=== PATIENT | female | born 2000 | race African-American/Black ===

== ENCOUNTER 2020-03-02 11:34 | Outpatient (CLI) | payer OTHER ==
[2020-03-02 12:47] LABS: Basophils % (A) 0 %; Eosinophils # (A) 0.3 k/uL (0-0.7); Eosinophils % (A) 3 %; HCT 33.9 % (34.0-46.0); HGB 11.6 gm/dL (11.4-16.0); Lymphocytes # (A) 2.2 k/uL (1.0-4.8); Lymphocytes % (A) 22 %; MCH 31.1 pg (25.0-35.0); MCHC 34.2 g/dL (31.0-37.0); MCV 90.9 fL (80.0-100.0); Mean Platelet Volume 7.9; Monocytes # (A) 0.5 k/uL (0-1.0); Monocytes % (A) 5 %; Neutrophils # (A) 6.8 k/uL (1.3-7.7); Neutrophils % (A) 69 %; Platelet Count 243 k/uL (150-450); RBC 3.73 m/uL (3.80-5.40); RDW 13.3 % (11.5-15.5); WBC 9.9 k/uL (3.8-10.6)
[2020-03-02 12:58] LABS: INR 0.9 (<1.2); Partial Thromboplastin Time 23.2 sec (22.0-30.0); Prothrombin Time 9.7 sec (9.0-12.0)
[2020-03-02 13:06] LABS: ALT 10 U/L (4-34); AST 22 U/L (14-36); African American GFR (CKD) >90 (>60 ml/min/1.73 sqM); Blood Urea Nitrogen 3 mg/dL (7-17); LDH 532 U/L (313-618); Non-African American GFR(CKD) >90 (>60 ml/min/1.73 sqM); Uric Acid 3.4 mg/dL (3.7-7.4)
[2020-03-02 13:12] LABS: Amorphous Sediment,Urine Rare /hpf; Appearance,Urine Turbid (Clear); Bacteria,Urine Occasional /hpf; Bilirubin,Urine Negative (Negative); Blood,Urine Negative (Negative); Color,Urine Yellow; Glucose,Urine (UA) Negative (Negative); Ketones,Urine Negative (Negative); Leukocyte Esterase,Urine Small (Negative); Mucus,Urine Occasional /hpf; Nitrite,Urine Negative (Negative); PH, Urine 7.5 (5.0-8.0); Protein,Urine Negative (Negative); RBC,Urine 1 /hpf (0-5); Specific Gravity,Urine 1.015 (1.001-1.035); Squamous Epithelial Cell,Urine 9 /hpf (0-4); Urobilinogen,Urine <2.0 mg/dL (<2.0); WBC,Urine 8 /hpf (0-5)
[2020-03-02 13:43] VITALS: BP 129/69; PULSE 93; RESP 16; TEMP 96.5
[2020-03-02 13:43] LABS: Creatinine,Urine Random 122.1 mg/dL; Protein/Creatinine Ratio,Urine 0.106
--- NOTE | 2020-03-14 20:25 | P.MSEPDOC ---
Presenting Problems - Arrival Data Date of Arrival on Unit: 03/02/20 Time of Arrival on Unit: 11:34 Mode of Transport: Ambulatory - Complaint OB-Reason for Admission/Chief Complaint: NST, PIH Medical History - Information : 1 Para: 0 Term: 0 : 0 Abortions: Spontaneous or Elective: 0 Number of Living Children: 0 - Gestational Age Gestational Age by TABITHA (wks/days): 35 Weeks and 2 Days Review of Systems - Review of Systems Constitutional: No problems Breast: No problems ENT: No problems Cardiovascular: No problems Respiratory: No problems Gastrointestinal: No problems Genitourinary: No problems Musculoskeletal: No problems Neurological: No problems Skin: No problems Vital Signs - Temperature Temperature: 96.5 F Temperature Source: Temporal Artery Scan - Pulse Right Pulse Rate: 93 Pulse Assessment Method: Automatic Cuff - Respirations Respiratory Rate: 16 Oxygen Delivery Method: Room Air O2 Sat by Pulse Oximetry: 99 - Blood Pressure Right Arm Blood Pressure: 129/69 Blood Pressure Mean: 89 Blood Pressure Source: Automatic Cuff Medical Screen Scoring (Pre) - Cervical Exam Dilation: Exam Deferred Effacement: Exam Deferred Membranes: Intact - Uterine Contractions Frequency: N/A Duration: N/A Intensity: N/A - Maternal Vital Signs Maternal Temperature: N/A Maternal Blood Pressure: N/A Signs of Preeclampsia: N/A Maternal Respirations: N/A - Maternal Trauma Maternal Trauma: N/A - Assessment - Baby A Baseline FHR: 130 Heart Rate - NICHD Category: Category I (Normal) = 0 NST: Reactive Position: N/A Station: N/A - Total Score - Baby A Total Score - Baby A: 0 - Total Score - Baby B Total Score - Baby B: 0 - Total Score - Baby C Total Score - Baby C: 0 - Level of Risk - Baby A Level of Risk - Baby A: Low (0-5) - Level of Risk - Baby B Level of Risk - Baby B: Low (0-5) - Level of Risk - Baby C Level of Risk - Baby C: Low (0-5) Physician Notification (Pre) - Physician Notified Physician Notified Date: 03/02/20 Physician Notified Time: 13:35 New Order Received: Yes - Notification Comment Comment: RN reported to Dr. Joseph MANDEL & lab results. UA to be sent for culture. BPs WNL during stay in triage. Pt may DC home with follow up in office next week. Disposition - Disposition OB Disposition: Discharge to home Discharge Date: 03/02/20 Discharge Time: 13:50 I agree with the RN Medical Screening Exam: Yes Case reviewed; plan agreed upon as documented in EMR&OBIX.: Yes Diagnosis: GESTATIONAL HTN W/O SIGNIFICANT PROTEINURIA, UNSP TRIMESTER
== END 2020-03-02 13:50 | disposition home or self-care (01) ==
LOC: FBPOP 11:34
PROVIDERS: ATTEND Obstetrics & Gynecology
DX: O13.3 Gestational [pregnancy-induced] hypertension without significant proteinuria, third trimester (principal); Z3A.35 35 weeks gestation of pregnancy
CPT/HCPCS: 59025; 81001; 82565; 82570; 83615; 84156; 84450; 84460; 84520; 84550; 85025; 85384; 85610; 85730; 87086

== ENCOUNTER 2020-03-17 16:10 | Inpatient (IN) | payer OTHER ==
[2020-03-17] MEDS ORDERED: DINOPROSTONE 10 MG INSERT.ER VAGINAL ONE (16:20)
[2020-03-17] MEDS ORDERED: BUTORPHANOL 1 MG/ML 1 ML VIAL IV PRN (17:06)
[2020-03-17 17:20] LABS: Amphetamine Screen,Urine Not Detected (NotDetected); Barbiturate Screen,Urine Not Detected (NotDetected); Benzodiazepines Screen,Urine Not Detected (NotDetected); Cocaine Screen,Urine Not Detected (NotDetected); Methadone Screen, Urine Not Detected (NotDetected); Opiate Screen,Urine Not Detected (NotDetected); Oxycodone Screen, Urine Not Detected (NotDetected); Phencyclidine Screen,Urine Not Detected (NotDetected); Tricyclic Antidepressant,Urine Not Detected (NotDetected); Urn Cannabinoid Scrn Detected (NotDetected)
[2020-03-18] MEDS ORDERED: METHYLERGONOVINE 0.2 MG/ML 1 ML AMP IM PRN (05:30)
[2020-03-18] MEDS ORDERED: LIDOCAINE 0.5% (PF) 5 MG/ML (50 ML SDV) SQ PRN (05:30)
[2020-03-18] MEDS ORDERED: OXYTOCIN 10 UNIT/ML 1 ML VIAL IM PRN (05:30)
[2020-03-18] MEDS ORDERED: OXYTOCIN 30 UNITS/500 ML NS 30 UNIT in SALINE 1 500ML.BAG IV SCH ×2 (05:30→18:00)
[2020-03-18] MEDS ORDERED: CARBOPROST TROMETHAMINE 250 MCG/ML 1 ML AMP IM PRN (05:30)
[2020-03-18] MEDS ORDERED: TERBUTALINE 1 MG/ML VIAL SQ PRN (05:30)
[2020-03-18] MEDS: LACTATED RINGERS 1,000 ML IV SCH ×4 (06:17→15:19)
[2020-03-18 06:22] LABS: Basophils % (A) 0 %; Eosinophils # (A) 0.2 k/uL (0-0.7); Eosinophils % (A) 2 %; HGB 12.1 gm/dL (11.4-16.0); Lymphocytes # (A) 2.1 k/uL (1.0-4.8); Lymphocytes % (A) 24 %; MCH 31.6 pg (25.0-35.0); MCHC 34.6 g/dL (31.0-37.0); MCV 91.4 fL (80.0-100.0); Mean Platelet Volume 8.2; Monocytes # (A) 0.5 k/uL (0-1.0); Monocytes % (A) 5 %; Neutrophils # (A) 5.9 k/uL (1.3-7.7); Neutrophils % (A) 67 %; Platelet Count 224 k/uL (150-450); RBC 3.83 m/uL (3.80-5.40); RDW 14.1 % (11.5-15.5); WBC 8.8 k/uL (3.8-10.6)
[2020-03-18 06:26] LABS: Amorphous Sediment,Urine Few /hpf; Appearance,Urine Cloudy (Clear); Bacteria,Urine Rare /hpf; Bilirubin,Urine Negative (Negative); Blood,Urine Small (Negative); Color,Urine Yellow; Glucose,Urine (UA) Negative (Negative); Ketones,Urine Negative (Negative); Leukocyte Esterase,Urine Negative (Negative); Mucus,Urine Rare /hpf; Nitrite,Urine Negative (Negative); Protein,Urine Negative (Negative); RBC,Urine 2 /hpf (0-5); Specific Gravity,Urine 1.016 (1.001-1.035); Squamous Epithelial Cell,Urine 3 /hpf (0-4); Urobilinogen,Urine <2.0 mg/dL (<2.0); WBC,Urine 2 /hpf (0-5)
[2020-03-18 06:29] LABS: ALT 11 U/L (4-34); AST 19 U/L (14-36); African American GFR (CKD) >90 (>60 ml/min/1.73 sqM); Blood Urea Nitrogen 5 mg/dL (7-17); LDH 485 U/L (313-618); Non-African American GFR(CKD) >90 (>60 ml/min/1.73 sqM); Uric Acid 3.9 mg/dL (3.7-7.4)
[2020-03-18 06:30] LABS: INR 0.9 (<1.2); Partial Thromboplastin Time 22.8 sec (22.0-30.0); Prothrombin Time 9.8 sec (9.0-12.0)
[2020-03-18 06:31] LABS: Creatinine,Urine Random 115.2 mg/dL; Protein/Creatinine Ratio,Urine 0.122
[2020-03-18] MEDS ORDERED: ROPIVACAINE 5MG/ML 20ML VIAL ONE (12:21)
[2020-03-18] MEDS ORDERED: SODIUM CHLORIDE 0.9% 100 ML BAG ONE (12:21)
[2020-03-18] MEDS ORDERED: fentaNYL (PF) 50 MCG/ML 5 ML AMP ONE (12:21)
[2020-03-18] MEDS ORDERED: diphenhydrAMINE 25 MG CAP PO PRN (17:59)
[2020-03-18] MEDS ORDERED: diphenhydrAMINE 50 MG CAP PO PRN (17:59)
[2020-03-18] MEDS ORDERED: SIMETHICONE 80 MG CHEWABLE PO PRN (17:59)
[2020-03-18] MEDS ORDERED: diphenhydrAMINE 50 MG/ML 1 ML VIAL IVP PRN ×2 (17:59)
[2020-03-18] MEDS ORDERED: BENZOCAINE/MENTHOL SPRAY 1 GM/SPRAY AEROSOL TOPICAL PRN (17:59)
[2020-03-18] MEDS ORDERED: ACETAMINOPHEN TAB 325 MG TAB PO PRN (17:59)
[2020-03-18] MEDS ORDERED: HYDROCORTISONE 2.5% RECTAL CREAM 30 GM TUBE RECTAL PRN (17:59)
[2020-03-18] MEDS ORDERED: LANOLIN CREAM 5 GM TUBE TOPICAL PRN (17:59)
[2020-03-18] MEDS ORDERED: ZOLPIDEM 5 MG TAB PO PRN (17:59)
--- NOTE | 2020-03-18 18:02 | P.HPOB ---
History of Present Illness H&P Date: 03/17/20 Chief Complaint: Gestational hypertension 19-year-old presents at 37 weeks and 3 days for induction of labor due to gestational hypertension. Her cervix is closed, thick, -3 station. She is nita not nita and heart tones are 135 with moderate varia bility and reactive. Review of Systems All systems: negative Constitutional: Denies chills, Denies fever Eyes: denies blurred vision, denies pain Ears, nose, mouth and throat: Denies headache, Denies sore throat Cardiovascular: Denies chest pain, Denies shortness of breath Respiratory: Denies cough Gastrointestinal: Denies abdominal pain, Denies diarrhea, Denies nausea, Denies vomiting Genitourinary: Denies dysuria, Denies hematuria Musculoskeletal: Denies myalgias Integumentary: Denies pruritus, Denies rash Neurological: Denies numbness, Denies weakness Psychiatric: Denies anxiety, Denies depression Endocrine: Denies fatigue, Denies weight change Past Medical History Past Medical History: No Reported History Additional Past Medical History / Comment(s): Obstetric history: This is her first and she's had care with me. Blood type is A+, abs negative, rubella immune, hepatitis B negative, RPR nonreactive, GBS negative. History of Any Multi-Drug Resistant Organisms: None Reported Additional Past Surgical History / Comment(s): Marshall teeth. Past Anesthesia/Blood Transfusion Reactions: No Reported Reaction Past Psychological History: Anxiety, Depression Smoking Status: Former smoker Past Alcohol Use History: None Reported Past Drug Use History: Marijuana Additional Drug Use History / Comment(s): Last used in Feb 2020 thc. - Past Family History Mother Family Medical History: Hyperlipidemia, Hypertension Medications and Allergies Home Medications Medication Instructions Recorded Confirmed Type Pnv,Calcium 72/Iron/Folic Acid 1 tab PO DAILY 03/02/20 03/17/20 History [ Plus Tablet] Allergies Allergy/AdvReac Type Severity Reaction Status Date / Time No Known Allergies Allergy Verified 03/02/20 11:56 Exam Osteopathic Statement: *. No significant issues noted on an osteopathic structural exam other than those noted in the History and Physical/Consult. Intake and Output 03/18/20 03/18/20 03/18/20 06:59 14:59 22:59 Intake Total 0 Output Total 200 Balance 0 -200 Intake: Oral 0 Output: Urine 200 Other: # Voids 2 Heart: Regular rate and rhythm Lungs: Clear to auscultation bilaterally Abdomen: Soft, nontender Extremities: Negative Homans sign Results Result Diagrams: 03/18/20 06:00 03/18/20 06:00 Abnormal Lab Results - Last 24 Hours (Table) 03/18/20 03/18/20 Range/Units 06:00 06:00 BUN 5 L (7-17) mg/dL Creatinine 0.47 L (0.52-1.04) mg/dL Urine Appearance Cloudy H (Clear) Urine Blood Small H (Negative) Amorphous Sediment Few H (None) /hpf Urine Bacteria Rare H (None) /hpf Urine Mucus Rare H (None) /hpf Assessment and Plan (1) Gestational hypertension Current Visit: Yes Status: Acute Code(s): O13.9 - GESTATIONAL HTN W/O SIGNIFICANT PROTEINURIA, UNSP TRIMESTER SNOMED Code(s): 604897731 Plan: 1. Admit to family place 2. Induction of labor with Cervidil and then Pitocin and amniotomy for induction of labor. 3. Anticipate normal vaginal delivery
--- NOTE | 2020-03-18 18:04 | P.PROBDLV ---
Vaginal Delivery Note - . Vaginal Delivery Note: 19-year-old presents at 37 weeks and 3 days for induction of labor due to gestational hypertension. Her cervix is closed, thick, -3 station. She is nita not nita and heart tones are 135 with moderate variability and reactive. Cervidil was placed in the evening. Was removed this morning and her cervix was 1 cm dilated, 60% effaced, and -3 station. Pitocin was started. Amniotomy performed at 7:55 AM and clear fluid noted. When she was uncomfortable she did get an epidural. Her cervix is completely dilated at 1732. She pushed, delivered a viable male infant over intact perineum under epidural anesthesia at 1738. Head delivered OA, anterior shoulder delivered gentle downward guidance followed by posterior shoulder and rest of body. Nose and mouth bulb suctioned, cord clamped and cut, infant placed on mother's abdomen. Apgars 7, 7, weight 5 lbs. 13 oz. Placenta was attempted to be delivered but the cord evulsed. Male extraction of the placenta was performed. The placenta was sent to pathology. Vagina, cervix, perineum inspected. No lacerations noted. Estimated blood loss 200 mL. Mother and baby in stable condition.
[2020-03-18] MEDS: LABETALOL 200 MG TAB PO SCH (18:36)
[2020-03-19 04:55] LABS: Basophils % (A) 0 %; Eosinophils # (A) 0.1 k/uL (0-0.7); Eosinophils % (A) 1 %; HCT 29.8 % (34.0-46.0); HGB 10.3 gm/dL (11.4-16.0); Lymphocytes # (A) 2.6 k/uL (1.0-4.8); Lymphocytes % (A) 22 %; MCH 31.6 pg (25.0-35.0); MCHC 34.5 g/dL (31.0-37.0); MCV 91.4 fL (80.0-100.0); Mean Platelet Volume 8.6; Monocytes # (A) 0.7 k/uL (0-1.0); Monocytes % (A) 5 %; Neutrophils # (A) 8.6 k/uL (1.3-7.7); Neutrophils % (A) 70 %; Platelet Count 202 k/uL (150-450); RBC 3.26 m/uL (3.80-5.40); RDW 14.3 % (11.5-15.5); WBC 12.2 k/uL (3.8-10.6)
[2020-03-19] MEDS: LABETALOL 200 MG TAB PO SCH ×3 (07:03→20:32)
[2020-03-19] MEDS: SENNOSIDES-DOCUSATE SODIUM 1 EACH TAB PO SCH ×3 (08:08→20:31)
[2020-03-19] MEDS: IBUPROFEN 600 MG TAB PO PRN ×3 (08:08→23:57)
--- NOTE | 2020-03-19 09:50 | P.PNOBGVD ---
Subjective - Subjective Principal diagnosis: S/P NVD PPD #1 Interval history: Patient seen and examined. Denies nausea, vomiting, chest pain, shortness of breath and Pain. Her pressures were still rather high last night labetalol 200 mg twice a day. She is maintaining her blood pressures are 130s over 80 now. Patient reports: Reports appetite normal, Reports voiding normally, Reports pain well controlled, Reports ambulating normally : doing well Objective - Latest Vital Signs Latest vital signs: Vital Signs Temp Pulse Resp BP Pulse Ox 03/19/20 08:00 98.4 F 85 18 134/84 100 03/19/20 04:00 98.2 F 81 16 132/84 100 03/18/20 23:58 97.8 F 72 17 153/106 100 03/18/20 19:54 97.4 F L 95 16 151/75 03/18/20 19:24 97.4 F L 89 16 165/72 03/18/20 18:54 83 18 164/74 03/18/20 18:39 82 18 184/86 03/18/20 18:24 93 18 174/84 03/18/20 18:09 80 18 172/81 03/18/20 17:54 98.7 F 96 16 171/94 Intake and Output 03/18/20 03/19/20 03/19/20 22:59 06:59 14:59 Intake Total 184.050 600 Output Total 200 Balance -15.950 600 Intake: IV 600 Intake, IV Titration 184.050 Amount Oxytocin 30 Units/500 ml 184.050 Ns 30 unit In Saline 1 500ml.bag @ Per Protocol IV .Q0M [facility] Rx#:[id number] Output: Estimated Blood Loss 200 Other: # Voids 1 1 2 - Exam Lungs: bilateral: normal Chest: Normal S1, Normal S2 Extremities: Present: normal Abdomen: Present: normal appearance, soft Uterus: Present: normal, firm - Labs Labs: Abnormal Lab Results - Last 24 Hours (Table) 03/19/20 Range/Units 04:36 WBC 12.2 H (3.8-10.6) k/uL RBC 3.26 L (3.80-5.40) m/uL Hgb 10.3 L (11.4-16.0) gm/dL Hct 29.8 L (34.0-46.0) % Neutrophils # 8.6 H (1.3-7.7) k/uL Assessment and Plan (1) Gestational hypertension Current Visit: Yes Status: Acute Code(s): O13.9 - GESTATIONAL HTN W/O SIGNIFICANT PROTEINURIA, UNSP TRIMESTER SNOMED Code(s): 480544803 (2) Normal vaginal delivery Current Visit: Yes Status: Acute Code(s): O80 - ENCOUNTER FOR FULL-TERM UNCOMPLICATED DELIVERY SNOMED Code(s): 59936188 Plan: 1. Continue care 2. Monitor blood pressures closely
[2020-03-19] MEDS: LACTATED RINGERS 1,000 ML IV SCH ×3 (11:23→20:32)
[2020-03-20] MEDS: IBUPROFEN 600 MG TAB PO PRN ×2 (06:17→11:44)
[2020-03-20 08:45] VITALS: TEMP 98.7
--- NOTE | 2020-03-20 09:15 | P.DS ---
Providers Date of admission: 03/17/20 16:10 Expected date of discharge: 03/20/20 Attending physician: Raquel Ruiz Primary care physician: Stated None Hospital Course: This is a 19-year-old female 1 para 0 at 37-3/7 weeks who presented for induction of labor secondary to gestational hypertension. Please see history and physical for details of patient's admission. Her course has been essentially uncomplicated. She has been continued on labetalol for blood pressure control. Her baby is in level I nursery. She delivered vaginally on 03/18/2020 a viable male infant with scores of 7 at 1 minute 6 at 5 mi nutes and 6 at 10 minutes and infant weight of 5 lbs. 13 oz. Lochia is decreasing. She is using ibuprofen for pain control. Vital signs are stable currently. Her blood pressures are normal currently. Abdomen is soft with mild tenderness on her fundus. Lochia is minimal. Extremities show negative Homans. Impression is status post vaginal delivery day #2, gestational hypertension. Plan is to discharge home today. Routine instructions are given. She will be continued on labetalol 200 mg twice a day and ibuprofen as needed for pain. She is advised to follow up with Dr. Ruiz in 1 week in the office for a blood pressure check and in 6 weeks for check. She is bottle feeding but has requested a breast pump so that she can try to pump her breast milk to use that to bottlefeed her baby. She will be given a prescription for ibuprofen and labetalol to go home with. She is advised to call the office if she has any further questions or concerns prior to her appointment time. She does plan to stay at the [facility] immediately following discharge so that she can be close to her baby. Procedures: Oxytocin induction of labor Spontaneous vaginal delivery of a viable male infant on 03/18/2020 Patient Condition at Discharge: Stable Plan - Discharge Summary New Discharge Prescriptions: New Ibuprofen [Motrin] 600 mg PO Q6HR PRN #60 tab PRN Reason: Mild Pain Or Fever >= 100.5 Labetalol [Trandate] 200 mg PO BID #60 tab Continue Pnv,Calcium 72/Iron/Folic Acid [ Plus Tablet] 1 tab PO DAILY Discharge Medication List Pnv,Calcium 72/Iron/Folic Acid [ Plus Tablet] 1 tab PO DAILY 03/02/20 [History] Ibuprofen [Motrin] 600 mg PO Q6HR PRN #60 tab 03/20/20 [Rx] Labetalol [Trandate] 200 mg PO BID #60 tab 03/20/20 [Rx] Follow up Appointment(s)/Referral(s): Raquel Ruiz DO [Doctor of Osteopathic Medicine] - 1 Week Activity/Diet/Wound Care/Special Instructions: Instructions 1. Do not begin any exercise program for 3 weeks. 2. Do not resume sexual relations for 3 weeks or longer if uncomfortable. 3. You may take tub baths or showers at any time. 4. You may use tampons if desired after 3 weeks. 5. Keep the area of episiotomy (stitches) clean and dry. 6. If you are not nursing, wear a good fitting, supportive bra during the day and limit fluid intake for at least 1 week to prevent breast engorgement. 7. Call the office, [phone], within the next week to make appointment for your 6 week checkup if it has not already been made. 8. Report any of the following occurrences to the doctor promptly: a. Heavy, excessive bleeding b. Chills, fever c. Burning or frequency of urination d. Pain or redness and breasts if nursing e. Increasing pain or swelling in episiotomy (stitches). In addition to the above instructions, the following additional should be followed: 1. No heavy lifting or straining (exercising) until after 6 week checkup. 2. Keep abdominal incision clean and dry: You may wear a dressing if more comfortable. 3. Make office appointment for 10 days after going home or as instructed by her doctor. Discharge Disposition: HOME SELF-CARE
[2020-03-20] MEDS: SENNOSIDES-DOCUSATE SODIUM 1 EACH TAB PO SCH (09:23)
[2020-03-20] MEDS: LABETALOL 200 MG TAB PO SCH (09:23)
[2020-03-20 12:08] VITALS: BP 151/82
[2020-03-20 16:59] VITALS: PULSE 91; RESP 16
== END 2020-03-20 19:00 | disposition home or self-care (01) | DRG 807 ==
LOC: 4FBP 16:10
PROVIDERS: ADMIT Obstetrics & Gynecology; ATTEND Obstetrics & Gynecology
DX: O13.4 Gestational [pregnancy-induced] hypertension without significant proteinuria, complicating childbirth (principal); Z37.0 Single live birth; Z3A.37 37 weeks gestation of pregnancy; O99.62 Diseases of the digestive system complicating childbirth; K21.9 Gastro-esophageal reflux disease without esophagitis; Z79.899 Other long term (current) drug therapy; Z87.891 Personal history of nicotine dependence; Z86.59 Personal history of other mental and behavioral disorders; Z82.49 Family history of ischemic heart disease and other diseases of the circulatory system; Z83.49 Family history of other endocrine, nutritional and metabolic diseases
CPT/HCPCS: 80306; 81001; 82565; 82570; 83615; 84156; 84450; 84460; 84520; 84550; 85025; 85610; 85730; 86850; 86900; 86901; 88307